=== PATIENT | female | born 1995 | race Caucasian/White ===

== ENCOUNTER 2016-08-02 18:59 | Emergency (ER) | payer OTHER ==
[2016-08-02 19:42] LABS: COLOR COLORLESS; LEUKOCYTE ESTERASE,URINE NEGATIVE (NEGATIVE); NITRITE,URINE NEGATIVE (NEGATIVE)
[2016-08-02] MEDS ORDERED: NS 1,000 ML IV ONE (20:06)
[2016-08-02 20:31] LABS: % IMMATURE GRANULYOCYTES 0.3 % (0.0-1.1); ABSOLUTE IMMATURE GRANULOCYTES 0.02 10^3/uL (0.00-0.10); ADD DIFF? NO; ADD MORPH? NO; ADD SCAN? NO; ATYPICAL LYMPHOCYTE FLAG 20 (0-99); FRAGMENT RBC FLAG 0 (0-99); HEMATOCRIT 41.8 % (38.0-47.0); HEMOGLOBIN 14.1 g/dL (12.6-16.3); LEFT SHIFT FLG 10 (0-99); LIPEMIA HEMOLYSIS FLAG 80 (0-99); MEAN CELL HEMOGLOBIN 30.1 pg (27.9-34.1); MEAN CELL HEMOGLOBIN CONCENTR. 33.7 g/dL (32.4-36.7); MEAN CELL VOLUME 89.3 fL (81.5-99.8); MEAN PLATELET VOLUME 9.6 fL (8.7-11.7); PLATELET CLUMPS FLAG 0 (0-99); PLATELET COUNT 255 10^3/uL (150-400); RED BLOOD CELL COUNT 4.68 10^6/uL (4.18-5.33); RED CELL DISTRIBUTION WIDTH 12.3 % (11.5-15.2)
[2016-08-02 20:59] LABS: ANION GAP 10 mEq/L (8-16); CALCIUM 9.8 mg/dL (8.5-10.4); CARBON DIOXIDE 25 mEq/l (22-31); CHLORIDE 103 mEq/L (97-110); CREATININE 0.7 mg/dL (0.6-1.0); GLOMERULAR FILTRATION RATE > 60; GLUCOSE 80 mg/dL (70-100); POTASSIUM 3.9 mEq/L (3.5-5.2); SODIUM 138 mEq/L (134-144)
--- NOTE | 2016-08-03 00:17 | EDPHY ---
H & P Stated Complaint: l lq abd pain now to r side for 3 days sat was worse HPI/ROS: Chief complaint: Pelvic pain History of present illness: This is a 21-year-old female who presents to the emergency department for evaluation of pelvic pain. Patient reports the onset of symptoms over the last 2-3 days. She reports initially pain was on the left side that has moved more towards the center. She describes cramping pain. It the onset of symptoms were severe that they have slowly improved in intensity. Patient denies precipitating factors. She denies alleviating or aggravating factors. Patient denies associated signs or symptoms including no fevers or chills, no nausea, vomiting, no abdominal pain, no diarrhea or constipation, no urinary symptoms, no abnormal vaginal discomfort discharge or bleeding. Her last menstrual cycle was 2 weeks ago. She has never had similar symptoms. Review of systems: A 10 point review of systems was obtained and other than described above was negative - Personal History LMP (Females 10-55): 8-14 Days Ago Current Tetanus/Diphtheria Vaccine: Yes Current Tetanus Diphtheria and Acellular Pertussis (TDAP): Yes - Medical/Surgical History Hx Asthma: No Hx Chronic Respiratory Disease: No Hx Diabetes: No Hx Cardiac Disease: No Hx Renal Disease: No Hx Cirrhosis: No Hx Alcoholism: No Hx HIV/AIDS: No Hx Splenectomy or Spleen Trauma: No - Social History Smoking Status: Never smoked Additional Social History: Denies STI risk factors - Physical Exam Exam: General Appearance: Alert, nontoxic, resting comfortably in bed. Eyes: Pupils equal and round no pallor or injection. ENT, Mouth: Mucous membranes moist. Respiratory: There are no retractions, lungs are clear to auscultation. Cardiovascular: Regular rate and rhythm. Gastrointestinal: Bowel sounds are normal. Abdomen is soft, nondistended. There is mild tenderness over the mid to right lower abdomen inferior to McBurney's point. No peritoneal signs. Genitourinary: No CVA tenderness. Neurological: Alert and oriented x4. Strength and sensation intact and symmetrical. Skin: Warm and dry, no rashes. Musculoskeletal: Neck is supple nontender. Extremities are symmetrical, full range of motion. Psychiatric: Patient is oriented X 3, there is no agitation. Constitutional: Initial Vital Signs Temperature (C) 36.9 C 08/02/16 19:13 Heart Rate 82 08/02/16 19:13 Respiratory Rate 18 08/02/16 19:13 Blood Pressure 133/91 H 08/02/16 19:13 O2 Sat (%) 97 08/02/16 19:13 O2 Delivery Mode Room Air Allergies/Adverse Reactions: No Known Allergies Allergy (Unverified 08/02/16 19:12) Home Medications: Medication Instructions Recorded Zoloft 100mg (*) 08/02/16 Medical Decision Making ED Course/Re-evaluation: Patient seen under the supervision of my secondary supervising physician Dr. Arcenio Hernandez. Patient presents to the emergency department for evaluation of pelvic pain. On presentation patient is nontoxic. She is afebrile and vital signs are stable. There is some discomfort to palpation over the anterior pelvis and lower abdomen. No peritoneal signs. Blood studies are unremarkable. Urinalysis is unremarkable. Pelvic ultrasound and right lower quadrant ultrasound are unremarkable. My suspicion for serious pathology at this time is low given benign physical exam, unremarkable workup and the fact that she is nearly symptom-free. I have offered further evaluation including CT of the abdomen and pelvis and a pelvic exam, we have discussed the risks and benefits and she has declined. She is comfortable being discharged home. She is asked to follow up with an OBGYN and a primary care doctor for further evaluation and care and referral information is given. Strict return precautions were provided. Patient voiced understanding and agreement with plan. Differential Diagnosis: Included but not limited to urinary tract infections, kidney stones, pelvic infections including vaginal infections and PID, tubo-ovarian abscess, ovarian cyst, ovarian torsion, appendicitis, colitis, diverticulitis, an associated complications - Data Points Laboratory Results: Laboratory Results 08/02/16 20:20 08/02/16 20:20 Medications Given: Discontinued Medications Sodium Chloride (Ns) 1,000 mls @ 0 mls/hr IV ONCE ONE PRN Reason: Wide Open Stop: 08/02/16 20:07 Last Admin: 08/02/16 20:24 Dose: 1,000 mls Departure - Departure Disposition: Home, Routine, Self-Care Clinical Impression: Pelvic pain Condition: Good Instructions: Pelvic Pain in Women (ED) Additional Instructions: It is not clear as to the cause of your symptoms today. We recommend you closely follow-up with OBGYN for continued evaluation and care. You can treat your pain with ibuprofen 600 mg 3 times a day for the next 2-3 days If at any time symptoms worsen or new symptoms develop please return to the emergency room for recheck. Referrals: NÉSTOR LUCIANO [Primary Care Provider] - As per Instructions Jannie Turner MD [Medical Doctor] - As per Instructions
[2016-08-03 00:34] VITALS: BP 114/58; PULSE 79; RESP 16; TEMP 98.1; O2SAT 97
== END 2016-08-03 00:34 | disposition home or self-care (01) ==
DX: R10.2 Pelvic and perineal pain (principal)